=== PATIENT | male | born 1960 | race Caucasian/White ===

== ENCOUNTER 2017-05-29 23:37 | Emergency (ER) | payer MEDICARE ==
[~2017-05-29] VITALS: Ht 177.8 cm; Wt 90.9 kg
[~2017-05-29 23:37] MED LIST: AMOXICILLIN/PO500 MG PO; AMOXICILLIN500 MG PO; LISINOPRIL20 MG PO; MULTI VIT PO; NAPROSYN500 MG PO; RANITIDINE150 M1 PO; TENORMIN PO; TENORMIN50 MG PO; TRAZODONE50 MG PO; ULTRAM50 M1 PO
[2017-05-30 00:06] LABS: URINE BLOOD DIPSTICK TRACE-LYSED (NEGATIVE); URINE COLOR YELLOW; URINE GLUCOSE - DIPSTICK 500 mg/dL (NEGATIVE); URINE KETONE 15 mg/dL (NEGATIVE); URINE LEUK ESTERASE NEGATIVE (NEGATIVE); URINE NITRITE - DIPSTICK NEGATIVE (Negative); URINE PROTEIN - DIPSTICK 30 mg/dL (NEG-TRACE)
[2017-05-30 00:15] LABS: URINE BILIRUBIN - DIPSTICK LARGE (NEGATIVE); URINE CLARITY SL CLOUDY
[2017-05-30 00:16] LABS: URINE MUCUS MANY hpf (NONE-FEW); URINE SQUAMOUS EPITHELIAL CELL FEW EPI/hpf (0-FEW); URINE WBC 0-2 WBC/hpf (0-5)
[2017-05-30 00:31] LABS: HEMATOCRIT 45.4 % (39.0-50.0); HEMOGLOBIN 15.6 g/dl (14.0-18.0); IMMATURE GRANULOCYTES 0.3 % (0.0-1.0); MEAN CELL VOLUME 87.8 fL CALC (80.0-100.0); MEAN CORPUSCULAR HGB 30.2 pG CALC (26.0-32.0); MEAN CORPUSCULAR HGB CONC 34.4 g/L CALC (32.0-36.0); NEUT# 5.47 thou/uL (1.82-7.42); RED BLOOD COUNT 5.17 mill/uL (4.70-6.10); RED CELL DISTRI WIDTH 12.3 % (11.5-15.5)
[2017-05-30 00:49] LABS: ALBUMIN 4.5 g/dL (3.2-5.0); ALKALINE PHOSPHATASE 153 u/l (38-126); AMYLASE 43 u/l (30-110); ANION GAP 19 (6-22 (CALC)); BUN 17 mg/dL (9-20); BUN/CREATININE RATIO 21 (12-20 (CALC)); CALCIUM 9.7 mg/dL (8.4-10.2); CARBON DIOXIDE 25 mmol/l (22-30); CHLORIDE 101 mmol/l (95-108); CREATININE 0.8 mg/dL (0.7-1.3); GFR > 60 ML/MIN (>=60 (CALC)); GFR FOR AFR.AMER. > 60 ML/MIN (>=60 (CALC)); GLUCOSE 205 mg/dL (75-110); LIPASE 117 u/l (23-300); POTASSIUM 3.5 mmol/l (3.5-5.1); SGOT/AST 275 u/l (17-59); SGPT/ALT 492 u/l (21-72); SODIUM 141 mmol/l (137-146); TOTAL PROTEIN 7.8 g/dL (6.3-8.2)
[2017-05-30 01:00] LABS: MYOGLOBIN 33 ng/mL (0 - 121)
[2017-05-30] MEDS ORDERED: ATENOLOL50 MG PO (01:06)
[2017-05-30] MEDS ORDERED: LISINOPRIL20 MG PO (01:07)
[2017-05-30] MEDS ORDERED: METFORMIN500 M1 PO (01:07)
[2017-05-30] MEDS ORDERED: [UNRECOGNIZED DRUG - REMARK] (01:08)
[2017-05-30] MEDS ORDERED: DESYREL50 MG PO (02:59)
[2017-05-30 04:32] VITALS: BP 151/81
== END 2017-05-30 04:34 | disposition short-term general hospital (02) ==
LOC: ED 23:37
PROVIDERS: Emergency Medicine
DX: R10.13 Epigastric pain (principal); R10.11 Right upper quadrant pain; R17 Unspecified jaundice; R11.2 Nausea with vomiting, unspecified; R14.3 Flatulence; I10 Essential (primary) hypertension; R94.31 Abnormal electrocardiogram [ECG] [EKG]

== ENCOUNTER 2017-12-01 08:30 | Observation (INO) | payer MEDICARE ==
[~2017-12-01] VITALS: Ht 177.8 cm; Wt 95.7 kg
[~2017-12-01 08:30] MED LIST changes: +ATENOLOL50 MG PO; +DESYREL50 MG PO; +METFORMIN500 M1 PO; +[UNRECOGNIZED DRUG - REMARK]
[2017-12-01 09:03] LABS: HEMATOCRIT 41.3 % (39.0-50.0); IMMATURE GRANULOCYTES 0.4 % (0.0-1.0); MEAN CORPUSCULAR HGB 30.5 pG CALC (26.0-32.0); MEAN CORPUSCULAR HGB CONC 33.9 g/L CALC (32.0-36.0); NEUT# 5.51 thou/uL (1.82-7.42); RED BLOOD COUNT 4.59 mill/uL (4.70-6.10); RED CELL DISTRI WIDTH 13.1 % (11.5-15.5)
[2017-12-01] MEDS ORDERED: HYDROCO/APAP1 TA9 PO (09:09)
[2017-12-01 09:15] LABS: ANION GAP 12 (6-22 (CALC)); BUN 19 mg/dL (9-20); BUN/CREATININE RATIO 28 (12-20 (CALC)); CARBON DIOXIDE 28 mmol/l (22-30); CHLORIDE 106 mmol/l (95-108); CREATININE 0.7 mg/dL (0.7-1.3); GFR > 60 ML/MIN (>=60 (CALC)); GFR FOR AFR.AMER. > 60 ML/MIN (>=60 (CALC)); POTASSIUM 4.2 mmol/l (3.5-5.1); SODIUM 141 mmol/l (137-146)
[2017-12-01 10:59] VITALS: BP 168/103
[2017-12-01 15:23] VITALS: BP 136/85
[2017-12-01 19:00] VITALS: BP 176/92
[2017-12-02 00:30] VITALS: BP 168/92
[2017-12-02 04:46] VITALS: BP 151/86
[2017-12-02 05:59] LABS: HEMATOCRIT 40.7 % (39.0-50.0); HEMOGLOBIN 13.5 g/dl (14.0-18.0); IMMATURE GRANULOCYTES 0.5 % (0.0-1.0); MEAN CELL VOLUME 90.2 fL CALC (80.0-100.0); MEAN CORPUSCULAR HGB 29.9 pG CALC (26.0-32.0); MEAN CORPUSCULAR HGB CONC 33.2 g/L CALC (32.0-36.0); NEUT# 6.36 thou/uL (1.82-7.42); RED BLOOD COUNT 4.51 mill/uL (4.70-6.10); RED CELL DISTRI WIDTH 12.9 % (11.5-15.5)
[2017-12-02 06:29] LABS: ALBUMIN 3.9 g/dL (3.2-5.0); ANION GAP 13 (6-22 (CALC)); BILIRUBIN, TOTAL 0.8 mg/dL (0.0-1.4); BUN 22 mg/dL (9-20); BUN/CREATININE RATIO 40 (12-20 (CALC)); CALCULATED LDLCHOLESTEROL 119 mg/dL (62-129 (CALC)); CARBON DIOXIDE 26 mmol/l (22-30); CHLORIDE 101 mmol/l (95-108); CHOLESTEROL HDL RATIO 4.4 (<4.4 (CALC)); CREATININE 0.6 mg/dL (0.7-1.3); GFR > 60 ML/MIN (>=60 (CALC)); GFR FOR AFR.AMER. > 60 ML/MIN (>=60 (CALC)); HDL CHOLESTEROL 40 mg/dL (>=40); POTASSIUM 3.9 mmol/l (3.5-5.1); SGPT/ALT 47 u/l (21-72); SODIUM 136 mmol/l (137-146); TOTAL CHOLESTEROL 174 mg/dl (0-199); TOTAL PROTEIN 6.9 g/dL (6.3-8.2); TOTAL TRIGLYCERIDES 76 mg/dl (30-149); VLDL CHOLESTROL 15 mg/dl (8-62 (CALC))
[2017-12-02 06:33] LABS: ALKALINE PHOSPHATASE 62 u/l (38-126); SGOT/AST 23 u/l (17-59)
[2017-12-02 08:09] VITALS: BP 186/84
[2017-12-02] MEDS ORDERED: MEDDOSEPAK PO (12:09)
[2017-12-02] MEDS ORDERED: Levaquin PO (12:10)
[2017-12-02 12:23] VITALS: BP 148/72
== END 2017-12-02 13:35 | disposition home or self-care (01) ==
LOC: ED 08:30 → ED-I 09:25 → ED 09:25 → MS2 09:46
PROVIDERS: Family Medicine; ADMIT Internal Medicine Geriatric Medicine; ATTEND Internal Medicine Geriatric Medicine
DX: J44.1 Chronic obstructive pulmonary disease with (acute) exacerbation (principal); J20.9 Acute bronchitis, unspecified; J44.0 Chronic obstructive pulmonary disease with (acute) lower respiratory infection; F11.20 Opioid dependence, uncomplicated; F12.20 Cannabis dependence, uncomplicated; G89.29 Other chronic pain; I10 Essential (primary) hypertension; E11.9 Type 2 diabetes mellitus without complications; F41.9 Anxiety disorder, unspecified; K21.9 Gastro-esophageal reflux disease without esophagitis; M54.5 Low back pain; M19.90 Unspecified osteoarthritis, unspecified site; T14.90XS Injury, unspecified, sequela; V29.9XXS Motorcycle rider (driver) (passenger) injured in unspecified traffic accident, sequela; R06.02 Shortness of breath

== ENCOUNTER 2018-04-30 00:55 | Emergency (ER) | payer MEDICARE ==
[~2018-04-30] VITALS: Ht 177.8 cm; Wt 91.0 kg
[~2018-04-30 00:55] MED LIST changes: +HYDROCO/APAP1 TA9 PO; +Levaquin PO; +MEDDOSEPAK PO
[2018-04-30 01:56] LABS: HEMATOCRIT 46.3 % (39.0-50.0); HEMOGLOBIN 15.9 g/dl (14.0-18.0); IMMATURE GRANULOCYTES 0.3 % (0.0-5.0); MEAN CELL VOLUME 90.1 fL CALC (80.0-100.0); MEAN CORPUSCULAR HGB 30.9 pG CALC (26.0-32.0); MEAN CORPUSCULAR HGB CONC 34.3 g/L CALC (32.0-36.0); NEUT# 5.76 thou/uL (1.82-7.42); RED BLOOD COUNT 5.14 mill/uL (4.70-6.10); RED CELL DISTRI WIDTH 13.2 % (11.5-15.5)
[2018-04-30 02:41] LABS: ALBUMIN 4.3 g/dL (3.2-5.0); ALKALINE PHOSPHATASE 65 u/l (38-126); ANION GAP 14 (6-22 (CALC)); BILIRUBIN, TOTAL 1.8 mg/dL (0.0-1.4); BUN 16 mg/dL (9-20); BUN/CREATININE RATIO 29 (12-20 (CALC)); CARBON DIOXIDE 25 mmol/l (22-30); CHLORIDE 104 mmol/l (95-108); CREATININE 0.6 mg/dL (0.7-1.3); GFR > 60 ML/MIN (>=60 (CALC)); GFR FOR AFR.AMER. > 60 ML/MIN (>=60 (CALC)); POTASSIUM 3.1 mmol/l (3.5-5.1); SGOT/AST 30 u/l (17-59); SODIUM 140 mmol/l (137-146); TOTAL PROTEIN 7.5 g/dL (6.3-8.2)
[2018-04-30 02:47] LABS: ACT PARTIAL THROMBO TIME 27.1 SECONDS (20.0-32.5); D-DIMER 0.36 mg/L (0.19-0.60); INTERNATIONAL NORMALIZED RATIO 1.1 RATIO (0.7-1.3); PROTHROMBIN TIME 11.4 SECONDS (9.0-12.5)
[2018-04-30 02:53] LABS: MYOGLOBIN 42 ng/mL (0 - 121)
[2018-04-30 03:36] VITALS: BP 134/85
== END 2018-04-30 03:54 | disposition home or self-care (01) ==
LOC: ED 00:55
PROVIDERS: Family Medicine
DX: F41.0 Panic disorder [episodic paroxysmal anxiety] (principal); J44.9 Chronic obstructive pulmonary disease, unspecified; E11.9 Type 2 diabetes mellitus without complications; I10 Essential (primary) hypertension; R06.02 Shortness of breath
CPT/HCPCS: J2060

== ENCOUNTER 2020-03-20 11:07 | Emergency (ER) | payer MEDICARE ==
[~2020-03-20] VITALS: Ht 177.8 cm; Wt 90.9 kg
[2020-03-20 12:23] LABS: HEMATOCRIT 47.2 % (39.0-50.0); HEMOGLOBIN 16.8 g/dl (14.0-18.0); IMMATURE GRANULOCYTES 0.2 % (0.0-5.0); MEAN CELL VOLUME 89.2 fL CALC (80.0-100.0); MEAN CORPUSCULAR HGB 31.8 pG CALC (26.0-32.0); MEAN CORPUSCULAR HGB CONC 35.6 g/dL CAL (32.0-36.0); NEUT# 5.9 thou/uL (1.82-7.42); RED BLOOD COUNT 5.29 mill/uL (4.70-6.10); RED CELL DISTRI WIDTH 13.1 % (11.5-15.5)
[2020-03-20 12:37] LABS: ALKALINE PHOSPHATASE 79 u/l (38-126); ANION GAP 19 (6-22 (CALC)); BILIRUBIN, TOTAL 2.3 mg/dL (0.0-1.4); BUN 16 mg/dL (9-20); BUN/CREATININE RATIO 17 (12-20 (CALC)); CARBON DIOXIDE 19 mmol/l (22-30); CHLORIDE 100 mmol/l (95-108); GFR > 60 ML/MIN (>=60 (CALC)); GFR FOR AFR.AMER. > 60 ML/MIN (>=60 (CALC)); POTASSIUM 4.4 mmol/l (3.5-5.1); SGOT/AST 27 u/l (17-59); SODIUM 134 mmol/l (137-146); TOTAL PROTEIN 8.1 g/dL (6.3-8.2)
[2020-03-20 12:46] LABS: INTERNATIONAL NORMALIZED RATIO 1.2 RATIO (0.7-1.3); PROTHROMBIN TIME 11.5 SECONDS (9.0-12.5)
[2020-03-20 13:35] LABS: URINE BLOOD DIPSTICK NEGATIVE (NEGATIVE); URINE COLOR YELLOW; URINE GLUCOSE - DIPSTICK 250 mg/dL (NEGATIVE); URINE KETONE NEGATIVE (NEGATIVE); URINE LEUK ESTERASE NEGATIVE (NEGATIVE); URINE NITRITE - DIPSTICK NEGATIVE (Negative); URINE PROTEIN - DIPSTICK 100 mg/dL (NEG-TRACE); URINE UROBILINOGEN - DIPSTICK 0.2 E.U./dL (0.2)
[2020-03-20 13:37] LABS: URINE BILIRUBIN - DIPSTICK SMALL (NEGATIVE)
[2020-03-20 13:40] LABS: URINE HYALINE CAST FEW lpf (NONE-RARE); URINE MUCUS MODERATE hpf (NONE-FEW); URINE RBC 0-2 RBC/hpf (0-5); URINE SQUAMOUS EPITHELIAL CELL FEW EPI/hpf (0-FEW); URINE WBC 0-2 WBC/hpf (0-5)
[2020-03-20] MEDS ORDERED: VENTOLIN HFA IN (13:43)
[2020-03-20] MEDS ORDERED: ZITHROMAX250 MG PO (13:43)
[2020-03-20] MEDS ORDERED: PREDNISONE20 MG PO (13:43)
[2020-03-20 14:15] VITALS: BP 181/89
--- NOTE | 2020-03-22 09:14 | NUR ---
PRELIM BLOOD CX RESULTS SHOW GRAM POSITIVE COCCI IN 1/4 BOTTLES. RESULTS REPORTED TO DR VEGA. PT LEFT AMA WITH INSTRUCTIONS TO GO TO [facility] FOR F/U. NO ACTION TODAY, DR VEGA ASKED THAT WE FOLLOW UP WITH FINAL RESULTS.
== END 2020-03-20 14:15 | disposition home or self-care (01) ==
LOC: ED 11:07
PROVIDERS: Student in an Organized Health Care Education/Training Program
DX: J18.9 Pneumonia, unspecified organism (principal); J44.0 Chronic obstructive pulmonary disease with (acute) lower respiratory infection; E11.9 Type 2 diabetes mellitus without complications; I10 Essential (primary) hypertension; Z79.84 Long term (current) use of oral hypoglycemic drugs; Z20.828 Contact with and (suspected) exposure to other viral communicable diseases

== ENCOUNTER 2020-12-18 16:49 | Emergency (ER) | payer MEDICARE ==
[~2020-12-18] VITALS: Ht 177.8 cm; Wt 84.1 kg
[~2020-12-18 16:49] MED LIST changes: +PREDNISONE20 MG PO; +VENTOLIN HFA IN; +ZITHROMAX250 MG PO
[2020-12-18 16:54] VITALS: BP 130/71
[2020-12-18 18:25] LABS: IMMATURE GRANULOCYTES 0.6 % (0.0-5.0); MEAN CELL VOLUME 91.1 fL CALC (80.0-100.0); MEAN CORPUSCULAR HGB 30.4 pG CALC (26.0-32.0); MEAN CORPUSCULAR HGB CONC 33.3 g/dL CAL (32.0-36.0); NEUT# 8.16 thou/uL (1.82-7.42); RED BLOOD COUNT 4.25 mill/uL (4.70-6.10)
[2020-12-18 18:27] LABS: HEMATOCRIT 38.7 % (39.0-50.0); HEMOGLOBIN 12.9 g/dl (14.0-18.0)
[2020-12-18 18:43] LABS: ALBUMIN 4.5 g/dL (3.2-5.0); ALKALINE PHOSPHATASE 87 u/l (38-126); ANION GAP 16 (6-22 (CALC)); BUN 21 mg/dL (9-20); BUN/CREATININE RATIO 21 (12-20 (CALC)); CARBON DIOXIDE 25 mmol/l (22-30); CHLORIDE 100 mmol/l (95-108); GFR > 60 ML/MIN (>=60 (CALC)); GFR FOR AFR.AMER. > 60 ML/MIN (>=60 (CALC)); POTASSIUM 3.6 mmol/l (3.5-5.1); SGOT/AST 33 u/l (17-59); SODIUM 137 mmol/l (137-146); TOTAL PROTEIN 8.2 g/dL (6.3-8.2)
[2020-12-18 18:50] LABS: MYOGLOBIN 45 ng/mL (0 - 121)
[2020-12-18 19:18] LABS: URINE BILIRUBIN - DIPSTICK NEGATIVE (NEGATIVE); URINE BLOOD DIPSTICK NEGATIVE (NEGATIVE); URINE COLOR YELLOW; URINE GLUCOSE - DIPSTICK NEGATIVE (NEGATIVE); URINE KETONE NEGATIVE (NEGATIVE); URINE LEUK ESTERASE NEGATIVE (NEGATIVE); URINE PH 5.5 (4.5-8.0); URINE PROTEIN - DIPSTICK NEGATIVE (NEG-TRACE); URINE UROBILINOGEN - DIPSTICK 0.2 E.U./dL (0.2)
[2020-12-18 19:19] LABS: URINE NITRITE - DIPSTICK NEGATIVE (Negative)
[2020-12-18] MEDS ORDERED: MEDDOSEPAK PO (20:10)
[2020-12-18] MEDS ORDERED: ZPAK PO (20:10)
== END 2020-12-18 20:38 | disposition home or self-care (01) ==
LOC: ED 16:49
PROVIDERS: Emergency Medicine
DX: J44.1 Chronic obstructive pulmonary disease with (acute) exacerbation (principal); I10 Essential (primary) hypertension; E11.9 Type 2 diabetes mellitus without complications; Z79.4 Long term (current) use of insulin; Z20.822 Contact with and (suspected) exposure to COVID-19

== ENCOUNTER 2021-03-01 15:04 | Emergency (ER) | payer MEDICARE ==
[~2021-03-01 15:04] MED LIST changes: +ZPAK PO
== END 2021-03-01 15:23 | disposition left against medical advice (07) ==
LOC: ED 15:04 → LWOBS 15:23
DX: Z53.21 Procedure and treatment not carried out due to patient leaving prior to being seen by health care provider (principal)

== ENCOUNTER 2021-11-03 15:39 | Emergency (ER) | payer MEDICARE ==
[~2021-11-03] VITALS: Ht 177.8 cm; Wt 91.0 kg
[2021-11-03 15:48] VITALS: BP 145/91
[2021-11-03 17:07] VITALS: BP 144/98
[2021-11-03] MEDS ORDERED: HYDROCO/APAP1 TA9 PO (17:21)
[2021-11-03] MEDS ORDERED: FLEXERIL5 M1 PO (17:21)
== END 2021-11-03 17:40 | disposition home or self-care (01) ==
LOC: ED 15:39
DX: S16.1XXA Strain of muscle, fascia and tendon at neck level, initial encounter (principal); M62.830 Muscle spasm of back; I10 Essential (primary) hypertension; E11.9 Type 2 diabetes mellitus without complications; J44.9 Chronic obstructive pulmonary disease, unspecified; F17.200 Nicotine dependence, unspecified, uncomplicated; X50.3XXA Overexertion from repetitive movements, initial encounter; Y93.I9 Activity, other involving external motion; Y92.89 Other specified places as the place of occurrence of the external cause; Z79.84 Long term (current) use of oral hypoglycemic drugs

== ENCOUNTER 2022-08-04 03:25 | Emergency (ER) | payer MEDICARE ==
[~2022-08-04] VITALS: Ht 177.8 cm; Wt 86.1 kg
[~2022-08-04 03:25] MED LIST changes: +FLEXERIL5 M1 PO
[2022-08-04 03:43] LABS: BASO% 0.2 % (0-3); EOS% 1.1 % (0-8); HEMATOCRIT 40.3 % (39.0-50.0); IMMATURE GRANULOCYTES 0.2 % (0.0-5.0); MEAN CORPUSCULAR HGB 30.7 pG CALC (26.0-32.0); MEAN CORPUSCULAR HGB CONC 32.3 g/dL CAL (32.0-36.0); MONO% 7.6 % (2-13); NEUT# 6.01 thou/uL (1.82-7.42); NEUT% 68.9 % (42-76); RED BLOOD COUNT 4.24 mill/uL (4.70-6.10); RED CELL DISTRI WIDTH 13.3 % (11.5-15.5)
[2022-08-04 03:55] LABS: ALBUMIN 4.2 g/dL (3.2-5.0); ALKALINE PHOSPHATASE 81 u/l (38-126); ANION GAP 13 (6-22 (CALC)); BILIRUBIN, TOTAL 0.9 mg/dL (0.2-1.3); BUN 15 mg/dL (9-20); BUN/CREATININE RATIO 14 (12-20 (CALC)); CARBON DIOXIDE 25 mmol/l (22-30); CHLORIDE 107 mmol/l (95-108); CREATININE 1.1 mg/dL (0.7-1.3); GFR FOR AFR.AMER. > 60 ML/MIN (>=60 (CALC)); GFR OTHER RACES > 60 ML/MIN (>=60 (CALC)); LIPASE 90 u/l (23-300); POTASSIUM 3.3 mmol/l (3.5-5.1); SGOT/AST 41 u/l (17-59); SODIUM 141 mmol/l (137-146); TOTAL PROTEIN 6.9 g/dL (6.3-8.2)
[2022-08-04 03:58] LABS: ACT PARTIAL THROMBO TIME 23.9 SECONDS (20.0-32.5); INTERNATIONAL NORMALIZED RATIO 1.2 RATIO (0.7-1.3); PROTHROMBIN TIME 11.8 SECONDS (9.0-12.5)
[2022-08-04 05:54] VITALS: BP 157/84
== END 2022-08-04 05:58 | disposition short-term general hospital (02) ==
LOC: ED 03:25
PROVIDERS: Family Medicine
DX: R07.9 Chest pain, unspecified (principal); G89.29 Other chronic pain; I48.91 Unspecified atrial fibrillation; I10 Essential (primary) hypertension; E11.9 Type 2 diabetes mellitus without complications; J44.9 Chronic obstructive pulmonary disease, unspecified; Z79.01 Long term (current) use of anticoagulants; Z79.82 Long term (current) use of aspirin; Z79.84 Long term (current) use of oral hypoglycemic drugs; Z95.5 Presence of coronary angioplasty implant and graft; Z20.822 Contact with and (suspected) exposure to COVID-19

== ENCOUNTER 2022-10-28 12:51 | Inpatient (IN) | payer MEDICARE, MEDICAID ==
[2022-10-28] VITALS (31 sets, daily range): BP systolic 113–198; BP diastolic 70–123
[~2022-10-28] VITALS: Ht 177.8 cm; Wt 84.8 kg
[2022-10-28 13:31] LABS: BASO% 0.3 % (0-3); EOS% 0.3 % (0-8); HEMATOCRIT 41.3 % (39.0-50.0); HEMOGLOBIN 13.8 g/dl (14.0-18.0); IMMATURE GRANULOCYTES 0.1 % (0.0-5.0); LYMPH% 21.7 % (15-41); MEAN CORPUSCULAR HGB 30.4 pG CALC (26.0-32.0); MEAN CORPUSCULAR HGB CONC 33.4 g/dL CAL (32.0-36.0); NEUT# 6.8 thou/uL (1.82-7.42); NEUT% 70.6 % (42-76); RED BLOOD COUNT 4.54 mill/uL (4.70-6.10); RED CELL DISTRI WIDTH 12.8 % (11.5-15.5)
[2022-10-28 13:43] LABS: ALBUMIN 4.3 g/dL (3.2-5.0); ALKALINE PHOSPHATASE 79 u/l (38-126); ANION GAP 15 (6-22 (CALC)); BILIRUBIN, TOTAL 1.7 mg/dL (0.2-1.3); BUN 15 mg/dL (9-20); BUN/CREATININE RATIO 17 (12-20 (CALC)); CARBON DIOXIDE 24 mmol/l (22-30); CHLORIDE 104 mmol/l (95-108); CREATININE 0.9 mg/dL (0.7-1.3); GFR FOR AFR.AMER. > 60 ML/MIN (>=60 (CALC)); GFR OTHER RACES > 60 ML/MIN (>=60 (CALC)); LIPASE 56 u/l (23-300); POTASSIUM 3.7 mmol/l (3.5-5.1); SGOT/AST 55 u/l (17-59); SODIUM 140 mmol/l (137-146); TOTAL PROTEIN 7.6 g/dL (6.3-8.2)
[2022-10-28] MEDS ORDERED: VENTOLIN HFA108 MCG IN (13:59)
[2022-10-28] MEDS ORDERED: JARDIANCE25 MG PO (14:00)
[2022-10-28] MEDS ORDERED: METOPROLOL100 M1 PO (14:02)
[2022-10-28] MEDS ORDERED: ALDACTONE25 MG PO (14:03)
[2022-10-28] MEDS ORDERED: ELIQUIS5 MG PO (18:02)
[2022-10-28] MEDS ORDERED: FLEXERIL5 M1 PO (18:04)
[2022-10-28] MEDS ORDERED: LIPITOR80 M1 PO (18:05)
[2022-10-28] MEDS ORDERED: BUMETANIDE1 MG PO (18:06)
[2022-10-28] MEDS ORDERED: CLOBETASOL0.051 EX (18:07)
[2022-10-28] MEDS ORDERED: COREG3.125 MG PO (18:07)
[2022-10-29] VITALS (35 sets, daily range): BP systolic 43–191; BP diastolic 22–162
[2022-10-29 05:59] LABS: BASO% 0.3 % (0-3); EOS% 2.5 % (0-8); HEMATOCRIT 43.4 % (39.0-50.0); IMMATURE GRANULOCYTES 0.1 % (0.0-5.0); MEAN CELL VOLUME 91.6 fL CALC (80.0-100.0); MEAN CORPUSCULAR HGB 29.5 pG CALC (26.0-32.0); MEAN CORPUSCULAR HGB CONC 32.3 g/dL CAL (32.0-36.0); MONO% 5.8 % (2-13); NEUT# 6.17 thou/uL (1.82-7.42); NEUT% 62.3 % (42-76); RED BLOOD COUNT 4.74 mill/uL (4.70-6.10); RED CELL DISTRI WIDTH 12.8 % (11.5-15.5)
[2022-10-29 06:22] LABS: ALBUMIN 4.1 g/dL (3.2-5.0); ALKALINE PHOSPHATASE 78 u/l (38-126); ANION GAP 14 (6-22 (CALC)); BUN 18 mg/dL (9-20); BUN/CREATININE RATIO 21 (12-20 (CALC)); CALCULATED LDLCHOLESTEROL 78 mg/dL (62-129 (CALC)); CARBON DIOXIDE 25 mmol/l (22-30); CHLORIDE 100 mmol/l (95-108); CHOLESTEROL HDL RATIO 3.5 (<4.4 (CALC)); CREATININE 0.9 mg/dL (0.7-1.3); GFR FOR AFR.AMER. > 60 ML/MIN (>=60 (CALC)); GFR OTHER RACES > 60 ML/MIN (>=60 (CALC)); HDL CHOLESTEROL 39 mg/dL (39.0-59.0); POTASSIUM 3.2 mmol/l (3.5-5.1); SGOT/AST 42 u/l (17-59); SODIUM 136 mmol/l (137-146); TOTAL CHOLESTEROL 138 mg/dl (0-199); TOTAL PROTEIN 7.3 g/dL (6.3-8.2); TOTAL TRIGLYCERIDES 106 mg/dl (0-149); VLDL CHOLESTROL 21 mg/dl (4-45 (CALC))
[2022-10-29 06:36] LABS: MAGNESIUM 1.6 mg/dL (1.6-2.3)
[2022-10-30 03:38] VITALS: BP 104/55
[2022-10-30 08:45] LABS: HEMATOCRIT 49.9 % (39.0-50.0); HEMOGLOBIN 16.4 g/dl (14.0-18.0); MEAN CELL VOLUME 91.4 fL CALC (80.0-100.0); MEAN CORPUSCULAR HGB CONC 32.9 g/dL CAL (32.0-36.0); RED BLOOD COUNT 5.46 mill/uL (4.70-6.10); RED CELL DISTRI WIDTH 12.9 % (11.5-15.5)
[2022-10-30 08:59] LABS: ALBUMIN 4.3 g/dL (3.2-5.0); ALKALINE PHOSPHATASE 82 u/l (38-126); ANION GAP 13 (6-22 (CALC)); BILIRUBIN, TOTAL 1.8 mg/dL (0.2-1.3); BUN 25 mg/dL (9-20); BUN/CREATININE RATIO 27 (12-20 (CALC)); CARBON DIOXIDE 28 mmol/l (22-30); CHLORIDE 101 mmol/l (95-108); CREATININE 0.9 mg/dL (0.7-1.3); GFR FOR AFR.AMER. > 60 ML/MIN (>=60 (CALC)); GFR OTHER RACES > 60 ML/MIN (>=60 (CALC)); MAGNESIUM 1.5 mg/dL (1.6-2.3); SGOT/AST 35 u/l (17-59); SODIUM 138 mmol/l (137-146); TOTAL PROTEIN 7.5 g/dL (6.3-8.2)
[2022-10-30 09:01] LABS: POTASSIUM 4.1 mmol/l (3.5-5.1)
[2022-10-30 10:43] VITALS: BP 137/77
[2022-10-30] MEDS ORDERED: LORTAB 1010 MG PO ×2 (11:13→11:14)
== END 2022-10-30 12:45 | disposition home or self-care (01) | DRG 310 ==
LOC: ED 12:51 → ED-I 13:37 → ED 14:37 → ICU 14:38 → MS2 10-29 14:58
PROVIDERS: Nurse Practitioner; ADMIT Internal Medicine; ATTEND Internal Medicine
PROC: 3E0234Z Introduction of Serum, Toxoid and Vaccine into Muscle, Percutaneous Approach (ICD-10-PCS; principal; 2022-10-29)
DX: I48.91 Unspecified atrial fibrillation (principal); I11.0 Hypertensive heart disease with heart failure; I50.9 Heart failure, unspecified; E83.42 Hypomagnesemia; I25.118 Atherosclerotic heart disease of native coronary artery with other forms of angina pectoris; J44.9 Chronic obstructive pulmonary disease, unspecified; E11.9 Type 2 diabetes mellitus without complications; M54.9 Dorsalgia, unspecified; G89.29 Other chronic pain; I25.2 Old myocardial infarction; T40.2X6A Underdosing of other opioids, initial encounter; Z91.128 Patient's intentional underdosing of medication regimen for other reason; Z23 Encounter for immunization; Z79.01 Long term (current) use of anticoagulants; Z79.891 Long term (current) use of opiate analgesic; Z79.84 Long term (current) use of oral hypoglycemic drugs; Z95.5 Presence of coronary angioplasty implant and graft
CPT/HCPCS: J1650; J3475

== ENCOUNTER 2023-02-10 12:39 | Emergency (ER) | payer MEDICARE, MEDICAID ==
[~2023-02-10] VITALS: Ht 177.8 cm; Wt 82.6 kg
[2023-02-10] VITALS (20 sets, daily range): BP systolic 77–140; BP diastolic 46–94
[~2023-02-10 12:39] MED LIST changes: +ALDACTONE25 MG PO; +BUMETANIDE1 MG PO; +CLOBETASOL0.051 EX; +COREG3.125 MG PO; +ELIQUIS5 MG PO; +JARDIANCE25 MG PO; +LIPITOR80 M1 PO; +LORTAB 1010 MG PO; +METOPROLOL100 M1 PO; +VENTOLIN HFA108 MCG IN
[2023-02-10 14:38] LABS: BASO% 0.4 % (0-3); EOS% 1.6 % (0-8); IMMATURE GRANULOCYTES 0.6 % (0.0-5.0); LYMPH% 27.4 % (15-41); MEAN CELL VOLUME 90.5 fL CALC (80.0-100.0); MEAN CORPUSCULAR HGB 29.2 pG CALC (26.0-32.0); MEAN CORPUSCULAR HGB CONC 32.2 g/dL CAL (32.0-36.0); MONO% 9.6 % (2-13); NEUT# 4.91 thou/uL (1.82-7.42); NEUT% 60.4 % (42-76); RED BLOOD COUNT 3.91 mill/uL (4.70-6.10); RED CELL DISTRI WIDTH 14.3 % (11.5-15.5)
[2023-02-10 14:40] LABS: HEMATOCRIT 35.4 % (39.0-50.0); HEMOGLOBIN 11.4 g/dl (14.0-18.0)
[2023-02-10 14:58] LABS: ALKALINE PHOSPHATASE 132 u/l (38-126); BUN 17 mg/dL (9-20); BUN/CREATININE RATIO 19 (12-20 (CALC)); CHLORIDE 103 mmol/l (95-108); CREATININE 0.9 mg/dL (0.7-1.3); GFR FOR AFR.AMER. > 60 ML/MIN (>=60 (CALC)); GFR OTHER RACES > 60 ML/MIN (>=60 (CALC)); POTASSIUM 3.6 mmol/l (3.5-5.1); SGOT/AST 31 u/l (17-59); SODIUM 138 mmol/l (137-146); TOTAL PROTEIN 8.3 g/dL (6.3-8.2)
[2023-02-10 15:11] LABS: ALBUMIN 4.1 g/dL (3.2-5.0); ANION GAP 14 (6-22 (CALC)); BILIRUBIN, TOTAL 1.2 mg/dL (0.2-1.3); CARBON DIOXIDE 25 mmol/l (22-30)
== END 2023-02-10 18:43 | disposition home or self-care (01) ==
LOC: ED 12:39
PROVIDERS: Family Medicine
DX: R07.9 Chest pain, unspecified (principal); I10 Essential (primary) hypertension; E11.9 Type 2 diabetes mellitus without complications; I48.91 Unspecified atrial fibrillation; J44.9 Chronic obstructive pulmonary disease, unspecified; I25.2 Old myocardial infarction; Z95.5 Presence of coronary angioplasty implant and graft; Z79.84 Long term (current) use of oral hypoglycemic drugs; Z95.1 Presence of aortocoronary bypass graft; Z95.0 Presence of cardiac pacemaker

== ENCOUNTER 2023-02-23 14:19 | Emergency (ER) | payer MEDICARE, MEDICAID ==
[2023-02-23] VITALS (58 sets, daily range): BP systolic 70–179; BP diastolic 33–106
[~2023-02-23] VITALS: Ht 177.8 cm; Wt 80.7 kg
[2023-02-23 14:42] LABS: BASO% 0.1 % (0-3); EOS% 1.1 % (0-8); HEMATOCRIT 43.5 % (39.0-50.0); HEMOGLOBIN 14.2 g/dl (14.0-18.0); IMMATURE GRANULOCYTES 0.3 % (0.0-5.0); MEAN CORPUSCULAR HGB CONC 32.6 g/dL CAL (32.0-36.0); MONO% 15.3 % (2-13); NEUT# 5.92 thou/uL (1.82-7.42); NEUT% 66.2 % (42-76); RED BLOOD COUNT 4.73 mill/uL (4.70-6.10); RED CELL DISTRI WIDTH 14.9 % (11.5-15.5)
[2023-02-23 14:53] LABS: ALBUMIN 4.4 g/dL (3.2-5.0); BILIRUBIN, TOTAL 1.5 mg/dL (0.2-1.3); CREATININE 1.5 mg/dL (0.7-1.3); POTASSIUM 3.8 mmol/l (3.5-5.1); TOTAL PROTEIN 8.6 g/dL (6.3-8.2)
[2023-02-23 18:25] LABS: BASO% 0.1 % (0-3); EOS% 1.2 % (0-8); HEMATOCRIT 42.3 % (39.0-50.0); HEMOGLOBIN 13.1 g/dl (14.0-18.0); IMMATURE GRANULOCYTES 5.4 % (0.0-5.0); LYMPH% 19.7 % (15-41); MONO% 0.9 % (2-13); NEUT# 11.37 thou/uL (1.82-7.42); NEUT% 72.7 % (42-76); RED BLOOD COUNT 4.36 mill/uL (4.70-6.10); RED CELL DISTRI WIDTH 14.5 % (11.5-15.5)
[2023-02-23 18:37] LABS: ALKALINE PHOSPHATASE 141 u/l (38-126); ANION GAP 19 (6-22 (CALC)); BUN 19 mg/dL (9-20); BUN/CREATININE RATIO 15 (12-20 (CALC)); CARBON DIOXIDE 15 mmol/l (22-30); CHLORIDE 107 mmol/l (95-108); CREATININE 1.3 mg/dL (0.7-1.3); GFR FOR AFR.AMER. > 60 ML/MIN (>=60 (CALC)); GFR OTHER RACES 56 ML/MIN (>=60 (CALC)); POTASSIUM 3.8 mmol/l (3.5-5.1); SODIUM 137 mmol/l (137-146)
[2023-02-23 18:43] LABS: ALBUMIN 2.1 g/dL (3.2-5.0); BILIRUBIN, TOTAL 0.8 mg/dL (0.2-1.3); SGOT/AST 167 u/l (17-59); TOTAL PROTEIN 4.7 g/dL (6.3-8.2)
== END 2023-02-23 19:30 | disposition short-term general hospital (02) ==
LOC: ED 14:19
PROVIDERS: Family Medicine
PROC: 05H433Z Insertion of Infusion Device into Left Innominate Vein, Percutaneous Approach (ICD-10-PCS; principal; 2023-02-23)
PROC: 3E043XZ Introduction of Vasopressor into Central Vein, Percutaneous Approach (ICD-10-PCS; 2023-02-23)
PROC: 0BH17EZ Insertion of Endotracheal Airway into Trachea, Via Natural or Artificial Opening (ICD-10-PCS; 2023-02-23)
PROC: 5A1935Z Respiratory Ventilation, Less than 24 Consecutive Hours (ICD-10-PCS; 2023-02-23)
PROC: 5A12012 Performance of Cardiac Output, Single, Manual (ICD-10-PCS; 2023-02-23)
DX: U07.1 COVID-19 (principal); I46.9 Cardiac arrest, cause unspecified; I49.01 Ventricular fibrillation; N17.9 Acute kidney failure, unspecified; I10 Essential (primary) hypertension; E11.9 Type 2 diabetes mellitus without complications; I25.2 Old myocardial infarction; J44.9 Chronic obstructive pulmonary disease, unspecified; I48.91 Unspecified atrial fibrillation; Z95.5 Presence of coronary angioplasty implant and graft; Z95.1 Presence of aortocoronary bypass graft; Z95.0 Presence of cardiac pacemaker; Z79.84 Long term (current) use of oral hypoglycemic drugs
CPT/HCPCS: J0282; Q9967